=== PATIENT | female | born 1970 | race Caucasian/White ===

== ENCOUNTER 2024-10-18 14:51 | Inpatient (IN) | payer OTHER ==
[2024-10-18 16:17] LABS: HEMATOCRIT 42.5 % (32.4-45.2); HEMOGLOBIN 14.1 G/dL (10.7-15.3); MCH 29.7 pg (25.7-33.7); MCHC 33.1 g/dl (32.0-36.0); MEAN CELL VOLUME 89.6 fl (80-96); MEAN PLT VOLUME 7.1 fl (7.5-11.1); PLATELET COUNT 622.5 10^3/uL (134-434); RBC 4.74 10^6/uL (3.60-5.2); RDW 14.5 % (11.6-15.6)
[2024-10-18 16:28] LABS: EPITHELIAL CELLS 0-5 /hpf
[2024-10-18 16:41] LABS: BILIRUBIN,TOTAL 0.6 mg/dl (0.2-1); CALCIUM 9.5 mg/dl (8.5-10.1); CREATININE 0.8 mg/dl (0.6-1.3); MAGNESIUM 1.9 mg/dL (1.8-2.4); POTASSIUM 4.2 mmol/L (3.5-5.1); TOT PROT 7.1 g/dl (6.4-8.2)
[2024-10-18] MEDS ORDERED: ACETAMINOPHEN INJECTION 100 ML ONE (16:54)
[2024-10-18] MEDS: ACETAMINOPHEN 1000 MG/100 ML BAG IVPB ONE (16:58)
[2024-10-18] MEDS ORDERED: morphine SULFATE 4 MG/ML VIAL ONE ×3 (17:22→20:57)
[2024-10-18] MEDS: SODIUM CHLORIDE 0.9% 500 ML INFUS.BAG IV ONE (17:26)
[2024-10-18] MEDS: morphine CARPU-JECT 4 MG/1 ML DISP.SYRIN IVPUSH ONE ×3 (17:26→21:00)
[2024-10-18] MEDS ORDERED: PIPERACILLIN/TAZOBACTAM 4.5 GM VIAL IVPB ONE (18:36)
[2024-10-18] MEDS: PIPERACILLIN/TAZOB 4.5 GM 4.5 GM in DEXTROSE 5%-WATER 100 ML IVPB ONE (18:45)
[2024-10-19] MEDS: ACETAMINOPHEN 1000 MG/100 ML BAG IVPB ONE (00:06)
[2024-10-19 01:05] LABS: HIV INTERPRETATION NEGATIVE (NEGATIVE)
[2024-10-19] MEDS: SODIUM CHLORIDE 1,000 ML IV SCH (01:52)
[2024-10-19] MEDS: PIPERACILLIN/TAZOB 3.375 GM 50 ML IVPB SCH (01:53)
[2024-10-19 02:29] VITALS: BMI 35.6
[2024-10-19] MEDS ORDERED: ACETAMINOPHEN 325 MG TABLET (FP) PO PRN (05:19)
[2024-10-19 10:03] LABS: BASO % 0.1 % (0-2.0); EOS % 0.1 % (0-4.5); HEMATOCRIT 34.6 % (32.4-45.2); HEMOGLOBIN 11.3 GM/dL (10.7-15.3); LYMPH % 7.6 % (8-40); MCH 28.8 pg (25.7-33.7); MCHC 32.7 g/dl (32.0-36.0); MEAN CELL VOLUME 88.1 fl (80-96); MEAN PLT VOLUME 7.1 fl (7.5-11.1); MONO % 3.1 % (3.8-10.2); NEUT % 89.1 % (42.8-82.8); PLATELET COUNT 559 10^3/uL (134-434); RBC 3.93 M/mm3 (3.60-5.2); RDW 14.2 % (11.6-15.6); WHITE BLOOD COUNT 16.8 K/mm3 (4.0-10.0)
[2024-10-19 11:35] LABS: POTASSIUM 4.3 mmol/L (3.5-5.1)
[2024-10-19] MEDS: HYDROmorphone HCL CARPU-JECT 2 MG/1 ML DISP.SYRIN IVPB PRN ×2 (11:41→22:49)
[2024-10-19 11:44] LABS: ALBUMIN 2.7 g/dl (3.4-5.0); BLOOD UREA NITROGEN 8.5 mg/dL (7-18); CALCIUM 9.2 mg/dL (8.5-10.1)
[2024-10-19 11:48] LABS: BILIRUBIN,TOTAL 0.9 mg/dL (0.2-1); CREATININE 0.6 mg/dL (0.55-1.3); TOT PROT 6.2 g/dl (6.4-8.2)
[2024-10-19] MEDS: ACETAMINOPHEN 1000 MG/100 ML BAG IVPB PRN (12:44)
[2024-10-19] MEDS ORDERED: HYDROmorphone HCL CARPU-JECT 2 MG/1 ML DISP.SYRIN IVPB PRN (13:20)
[2024-10-19] MEDS: PIPERACILLIN/TAZOB 3.375 GM 3.375 GM in DEXTROSE 5%-WATER - 50 ML IVPB SCH (14:55)
[2024-10-19] MEDS ORDERED: HYDROmorphone HCL CARPU-JECT 2 MG/1 ML DISP.SYRIN IVPUSH PRN (16:18)
[2024-10-19] MEDS: PANTOPRAZOLE SODIUM 40 MG in SODIUM CHLORIDE 100 ML IVPB SCH (16:38)
[2024-10-19] MEDS: HYDROmorphone HCl 2 MG/ML VIAL IVPB ONE (17:26)
[2024-10-19] MEDS: PANTOPRAZOLE SODIUM 40 MG VIAL IVPUSH SCH (17:30)
[2024-10-19] MEDS: HYDROmorphone HCL CARPU-JECT 2 MG/1 ML DISP.SYRIN IVPB ONE (17:31)
[2024-10-19] MEDS: HYDROmorphone HCL CARPU-JECT 2 MG/1 ML DISP.SYRIN IVPUSH ONE (17:34)
[2024-10-19] MEDS: DEXTROSE 5%-NORMAL SALINE 1,000 ML IV SCH (18:39)
[2024-10-19] MEDS: PIPERACILLIN/TAZOB 4.5 GM 4.5 GM/100 ML BAG IVPB SCH (22:59)
[2024-10-20] MEDS: ENOXAPARIN NA (PORCINE) 40 MG/0.4 ML DISP.SYRIN SQ SCH (09:38)
[2024-10-20 12:51] LABS: HEMATOCRIT 33.3 % (32.4-45.2); HEMOGLOBIN 10.8 GM/dL (10.7-15.3); MCH 28.5 pg (25.7-33.7); MCHC 32.5 g/dl (32.0-36.0); MEAN CELL VOLUME 87.5 fl (80-96); MEAN PLT VOLUME 7.1 fl (7.5-11.1); PLATELET COUNT 508 10^3/uL (134-434); RBC 3.81 M/mm3 (3.60-5.2); RDW 14.3 % (11.6-15.6); WHITE BLOOD COUNT 14.8 K/mm3 (4.0-10.0)
[2024-10-20 13:12] LABS: POTASSIUM 3.7 mmol/L (3.5-5.1)
[2024-10-20 13:16] LABS: CALCIUM 8.8 mg/dL (8.5-10.1)
[2024-10-20 13:17] LABS: ALBUMIN 2.4 g/dl (3.4-5.0); BLOOD UREA NITROGEN 8.4 mg/dL (7-18); MAGNESIUM 2.1 mg/dL (1.8-2.4)
[2024-10-20 13:21] LABS: BILIRUBIN,TOTAL 0.5 mg/dL (0.2-1); CREATININE 0.7 mg/dL (0.55-1.3)
[2024-10-20 13:44] LABS: ANISOCYTOSIS 0; HELMET CELLS 0; HOWELL-JOLLY BODIES 0; MACROCYTOSIS 0; OVALOCYTE 0; ROULEAU 0; SICKELED CELLS 0; TARGET CELLS 0; TEAR DROP CELLS 0; TOXIC GRANULATION 0
[2024-10-20] MEDS: ACETAMINOPHEN 1000 MG/100 ML BAG IVPB PRN (16:11)
[2024-10-20] MEDS: MELATONIN 1 MG TABLET PO ONE (22:07)
[2024-10-21 08:49] LABS: BASO % 0.3 % (0-2.0); EOS % 0.1 % (0-4.5); HEMATOCRIT 32.4 % (32.4-45.2); HEMOGLOBIN 10.3 GM/dL (10.7-15.3); LYMPH % 9.7 % (8-40); MCH 28.2 pg (25.7-33.7); MCHC 31.7 g/dl (32.0-36.0); MEAN PLT VOLUME 7.4 fl (7.5-11.1); MONO % 4.2 % (3.8-10.2); NEUT % 85.7 % (42.8-82.8); PLATELET COUNT 473 10^3/uL (134-434); RBC 3.64 M/mm3 (3.60-5.2); RDW 14.1 % (11.6-15.6); WHITE BLOOD COUNT 12.7 K/mm3 (4.0-10.0)
[2024-10-21 09:15] LABS: POTASSIUM 3.8 mmol/L (3.5-5.1)
[2024-10-21 09:23] LABS: ALBUMIN 2.2 g/dl (3.4-5.0); BLOOD UREA NITROGEN 9.8 mg/dL (7-18); CALCIUM 8.4 mg/dL (8.5-10.1); MAGNESIUM 2.1 mg/dL (1.8-2.4)
[2024-10-21 09:27] LABS: CREATININE 0.6 mg/dL (0.55-1.3)
[2024-10-21 09:28] LABS: BILIRUBIN,TOTAL 0.5 mg/dL (0.2-1); TOT PROT 5.5 g/dl (6.4-8.2)
[2024-10-21] MEDS: ACETAMINOPHEN 325 MG TABLET (FP) PO PRN (23:00)
[2024-10-22 09:45] LABS: BASO % 0.8 % (0-2.0); EOS % 0.8 % (0-4.5); HEMOGLOBIN 10.4 GM/dL (10.7-15.3); LYMPH % 15.7 % (8-40); MCH 28.4 pg (25.7-33.7); MCHC 32.6 g/dl (32.0-36.0); MEAN CELL VOLUME 87.1 fl (80-96); MEAN PLT VOLUME 7.4 fl (7.5-11.1); MONO % 8.3 % (3.8-10.2); NEUT % 74.4 % (42.8-82.8); PLATELET COUNT 521 10^3/uL (134-434); RBC 3.67 M/mm3 (3.60-5.2); RDW 14.7 % (11.6-15.6); WHITE BLOOD COUNT 10.2 K/mm3 (4.0-10.0)
[2024-10-22 09:47] LABS: INR 1.25 (0.83-1.09); PROTHROMBIN TIME (PATIENT) 14.3 SEC (9.7-13.0)
[2024-10-22 10:00] LABS: POTASSIUM 3.8 mmol/L (3.5-5.1)
[2024-10-22 10:02] LABS: CALCIUM 8.2 mg/dL (8.5-10.1)
[2024-10-22 10:03] LABS: BLOOD UREA NITROGEN 7.2 mg/dL (7-18); MAGNESIUM 2.2 mg/dL (1.8-2.4)
[2024-10-22 10:05] LABS: CREATININE 0.5 mg/dL (0.55-1.3)
[2024-10-22 10:06] LABS: ALBUMIN 2.2 g/dl (3.4-5.0)
[2024-10-22 10:07] LABS: BILIRUBIN,TOTAL 0.5 mg/dL (0.2-1); TOT PROT 5.8 g/dl (6.4-8.2)
[2024-10-22 11:19] LABS: EPI CELLS >36 /uL (0-25.1); HYALINE CASTS 2 /uL (0-3.1); URINE APPEARANCE CLEAR; URINE BACTERIA 10 /uL (0-1359); URINE BILIRUBIN NEGATIVE (NEGATIVE); URINE COLOR DK YELLOW; URINE GLUCOSE (UA) NEGATIVE (NEGATIVE); URINE KETONE TRACE (NEGATIVE); URINE LEUK ESTERASE NEGATIVE (NEGATIVE); URINE NITRITE NEGATIVE (NEGATIVE); URINE PROTEIN 1+ (NEGATIVE); URINE RBC 39 /uL (0-23.9); URINE WBC 19 /uL (0-25.8)
[2024-10-23 09:28] LABS: HEMATOCRIT 29.4 % (32.4-45.2); MCH 29.3 pg (25.7-33.7); MEAN CELL VOLUME 86.3 fl (80-96); MEAN PLT VOLUME 7.2 fl (7.5-11.1); PLATELET COUNT 503 10^3/uL (134-434); RBC 3.41 M/mm3 (3.60-5.2); RDW 14.4 % (11.6-15.6); WHITE BLOOD COUNT 10.5 K/mm3 (4.0-10.0)
[2024-10-23 09:48] LABS: POTASSIUM 3.6 mmol/L (3.5-5.1)
[2024-10-23 09:55] LABS: ANISOCYTOSIS 0; MACROCYTOSIS 0
[2024-10-23 10:08] LABS: CALCIUM 8.4 mg/dL (8.5-10.1)
[2024-10-23 10:10] LABS: ALBUMIN 2.1 g/dl (3.4-5.0); BLOOD UREA NITROGEN 4.1 mg/dL (7-18); MAGNESIUM 2.2 mg/dL (1.8-2.4)
[2024-10-23 10:11] LABS: CREATININE 0.5 mg/dL (0.55-1.3)
[2024-10-23 10:13] LABS: BILIRUBIN,TOTAL 0.6 mg/dL (0.2-1)
[2024-10-23 10:15] LABS: TOT PROT 5.4 g/dl (6.4-8.2)
[2024-10-23] MEDS ORDERED: FENTANYL CITRATE/PF 50 MCG/ML VIAL ONE (14:10)
[2024-10-23] MEDS ORDERED: MIDAZOLAM HCL 2 MG/2 ML SINGLE DOSE VIAL ONE (14:10)
[2024-10-23] MEDS: FENTANYL CITRATE/PF 50 MCG/ML VIAL IVPUSH ONE (14:30)
[2024-10-23] MEDS: ONDANSETRON 4 MG/2 ML VIAL IVPB PRN (18:25)
[2024-10-23] MEDS: MELATONIN 5 MG TABLETS PO PRN (22:05)
[2024-10-24 09:39] LABS: INR 1.2 (0.83-1.09); PROTHROMBIN TIME (PATIENT) 13.7 SEC (9.7-13.0)
[2024-10-24 09:48] LABS: HEMATOCRIT 31.1 % (32.4-45.2); HEMOGLOBIN 10.2 GM/dL (10.7-15.3); MCH 28.7 pg (25.7-33.7); MCHC 32.9 g/dl (32.0-36.0); MEAN CELL VOLUME 87.2 fl (80-96); MEAN PLT VOLUME 7.3 fl (7.5-11.1); PLATELET COUNT 590 10^3/uL (134-434); RBC 3.57 M/mm3 (3.60-5.2); RDW 14.6 % (11.6-15.6); WHITE BLOOD COUNT 11.6 K/mm3 (4.0-10.0)
[2024-10-24 10:03] LABS: POTASSIUM 3.7 mmol/L (3.5-5.1)
[2024-10-24 10:12] LABS: CREATININE 0.6 mg/dL (0.55-1.3)
[2024-10-24 10:13] LABS: CALCIUM 8.7 mg/dL (8.5-10.1)
[2024-10-24 10:14] LABS: ALBUMIN 2.2 g/dl (3.4-5.0); MAGNESIUM 2.2 mg/dL (1.8-2.4)
[2024-10-24 10:16] LABS: BILIRUBIN,TOTAL 0.6 mg/dL (0.2-1)
[2024-10-24 11:18] LABS: ANISOCYTOSIS 0; HELMET CELLS 0; HOWELL-JOLLY BODIES 0; MACROCYTOSIS 0; OVALOCYTE 0; ROULEAU 0; SICKELED CELLS 0; TARGET CELLS 0; TEAR DROP CELLS 0; TOXIC GRANULATION 0
[2024-10-25 08:27] LABS: INR 1.18 (0.83-1.09); PROTHROMBIN TIME (PATIENT) 13.3 SEC (9.7-13.0)
[2024-10-25 08:41] LABS: CHLORIDE 106 mmol/L (98-107); POTASSIUM 3.4 mmol/L (3.5-5.1); SODIUM 141 mmol/L (136-145)
[2024-10-25 08:43] LABS: HEMATOCRIT 30.2 % (32.4-45.2); HEMOGLOBIN 9.8 GM/dL (10.7-15.3); MCH 28.4 pg (25.7-33.7); MCHC 32.6 g/dl (32.0-36.0); MEAN CELL VOLUME 87.1 fl (80-96); MEAN PLT VOLUME 7.3 fl (7.5-11.1); PLATELET COUNT 620 10^3/uL (134-434); RBC 3.47 M/mm3 (3.60-5.2); RDW 14.7 % (11.6-15.6); WHITE BLOOD COUNT 16.1 K/mm3 (4.0-10.0)
[2024-10-25 08:52] LABS: ALBUMIN 2.2 g/dl (3.4-5.0); CALCIUM 8.7 mg/dL (8.5-10.1)
[2024-10-25 08:53] LABS: ANION GAP 8 mmol/L (4-13); CO2 26 mmol/L (21-32); GLUCOSE,RANDOM 96 mg/dL (74-106); MAGNESIUM 2.2 mg/dL (1.8-2.4)
[2024-10-25 08:55] LABS: CREATININE 0.5 mg/dL (0.55-1.3); SGOT/AST 27 U/L (15-37); SGPT/ALT 35 U/L (13-61)
[2024-10-25 08:56] LABS: BILIRUBIN,TOTAL 0.5 mg/dL (0.2-1); TOT PROT 5.8 g/dl (6.4-8.2)
[2024-10-25 08:57] LABS: BLOOD UREA NITROGEN 2.9 mg/dL (7-18)
[2024-10-25 08:59] LABS: ALK PHOS 79 U/L (45-117)
[2024-10-25] MEDS: metroNIDAZOLE 250 MG TABLET PO SCH (10:39)
[2024-10-25] MEDS: POTASSIUM CHLORIDE TABS 20 MEQ TABLET.ER (FP) PO SCH (10:40)
[2024-10-25 10:56] LABS: ANISOCYTOSIS 1+; MACROCYTOSIS 0
[2024-10-25] MEDS: PANTOPRAZOLE 40 MG TABLET PO ONE (16:58)
[2024-10-25 23:28] VITALS: RESP 20; TEMP 98.1
[2024-10-26 06:55] VITALS: BP 133/78; PULSE 66
[2024-10-26 10:26] LABS: HEMATOCRIT 32.4 % (32.4-45.2); HEMOGLOBIN 10.7 GM/dL (10.7-15.3); MCH 28.6 pg (25.7-33.7); MEAN CELL VOLUME 86.5 fl (80-96); MEAN PLT VOLUME 7.3 fl (7.5-11.1); PLATELET COUNT 719 10^3/uL (134-434); RBC 3.74 M/mm3 (3.60-5.2); RDW 15.1 % (11.6-15.6); WHITE BLOOD COUNT 13.8 K/mm3 (4.0-10.0)
[2024-10-26 10:29] LABS: INR 1.2 (0.83-1.09); PROTHROMBIN TIME (PATIENT) 13.7 SEC (9.7-13.0)
[2024-10-26] MEDS: PANTOPRAZOLE 40 MG TABLET PO SCH (10:49)
[2024-10-26 11:00] LABS: ANISOCYTOSIS 0; MACROCYTOSIS 0
[2024-10-26 11:17] LABS: POTASSIUM 4.5 mmol/L (3.5-5.1)
[2024-10-26 11:19] LABS: ALBUMIN 2.5 g/dl (3.4-5.0); BLOOD UREA NITROGEN 3.8 mg/dL (7-18); CALCIUM 8.9 mg/dL (8.5-10.1)
[2024-10-26 11:22] LABS: CREATININE 0.5 mg/dL (0.55-1.3)
[2024-10-26 11:23] LABS: MAGNESIUM 2.1 mg/dL (1.8-2.4)
[2024-10-26 11:24] LABS: BILIRUBIN,TOTAL 0.5 mg/dL (0.2-1); TOT PROT 6.6 g/dl (6.4-8.2)
== END 2024-10-26 12:36 | disposition home or self-care (01) | DRG 244 ==
LOC: FER 14:51 → J8W 23:00
PROVIDERS: ADMIT Surgery; ATTEND Nurse Practitioner Acute Care
PROC: 0W9J3ZZ Drainage of Pelvic Cavity, Percutaneous Approach (ICD-10-PCS; principal; 2024-10-23)
PROC: BW2GZZZ Computerized Tomography (CT Scan) of Pelvic Region (ICD-10-PCS; 2024-10-23)
DX: K57.20 Diverticulitis of large intestine with perforation and abscess without bleeding (principal); E66.01 Morbid (severe) obesity due to excess calories; B96.20 Unspecified Escherichia coli [E. coli] as the cause of diseases classified elsewhere; D72.829 Elevated white blood cell count, unspecified; F12.90 Cannabis use, unspecified, uncomplicated; F17.210 Nicotine dependence, cigarettes, uncomplicated; Z68.35 Body mass index [BMI] 35.0-35.9, adult; R19.7 Diarrhea, unspecified
CPT/HCPCS: 0241U-QW; 36415; 49406; 71045-TC-FY; 74177-TC; 80053; 81003; 81015; 83036; 83605; 83690; 83735; 84484; 85025; 85027; 85610; 85730; 86140; 86803; 86850; 86900; 86901; 87040; 87070; 87075; 87077; 87086; 87102; 87116; 87186; 87205; 87206; 87210; 87389; 93005; 99285-25; J0131; Q9967

== ENCOUNTER 2024-11-16 10:10 | Inpatient (IN) | payer OTHER ==
[2024-11-16] MEDS: PIPERACILLIN/TAZOB 4.5 GM 4.5 GM in DEXTROSE 5%-WATER 100 ML IVPB ONE (11:00)
[2024-11-16] MEDS ORDERED: PIPERACILLIN/TAZOB 4.5 GM 4.5 GM/100 ML BAG IVPB ONE (11:15)
[2024-11-16 11:22] LABS: HEMATOCRIT 31.7 % (32.4-45.2); HEMOGLOBIN 10.3 GM/dL (10.7-15.3); MCH 27.6 pg (25.7-33.7); MCHC 32.4 g/dl (32.0-36.0); MEAN CELL VOLUME 85.1 fl (80-96); RBC 3.72 M/mm3 (3.60-5.2); RDW 15.7 % (11.6-15.6); WHITE BLOOD COUNT 21.6 K/mm3 (4.0-10.0)
[2024-11-16 11:32] LABS: INR 1.45 (0.83-1.09); PROTHROMBIN TIME (PATIENT) 16.2 SEC (9.7-13.0)
[2024-11-16 11:34] LABS: ACTIVATED PTT 35.6 SECONDS (25.2-36.5)
[2024-11-16] MEDS: SODIUM CHLORIDE 1,000 ML IV STA (11:45)
[2024-11-16 11:54] LABS: POTASSIUM 3.6 mmol/L (3.5-5.1)
[2024-11-16 11:55] LABS: BLOOD UREA NITROGEN 8.6 mg/dL (7-18); CALCIUM 9.2 mg/dL (8.5-10.1)
[2024-11-16 11:56] LABS: ALBUMIN 2.3 g/dl (3.4-5.0)
[2024-11-16 11:59] LABS: CREATININE 0.5 mg/dL (0.55-1.3)
[2024-11-16 12:01] LABS: BILIRUBIN,TOTAL 0.4 mg/dL (0.2-1); TOT PROT 6.8 g/dl (6.4-8.2)
[2024-11-16 12:21] LABS: ANISOCYTOSIS 1+; MACROCYTOSIS 1+
[2024-11-16 12:23] LABS: MEAN PLT VOLUME 6.6 fl (7.5-11.1); PLATELET COUNT 868 10^3/uL (134-434)
[2024-11-16] MEDS ORDERED: ACETAMINOPHEN INJECTION 100 ML ONE (12:33)
[2024-11-16] MEDS: ACETAMINOPHEN 1000 MG/100 ML BAG IVPB ONE (12:46)
[2024-11-16] MEDS: LACTATED RINGERS SOLUTION 1,000 ML IV SCH (14:25)
[2024-11-16] MEDS ORDERED: PIPERACILLIN/TAZOB 3.375 GM 50 ML IVPB SCH (18:00)
[2024-11-16] MEDS: PIPERACILLIN/TAZOB 3.375 GM 50 ML IVPB SCH (18:33)
[2024-11-16] MEDS: ACETAMINOPHEN 1000 MG/100 ML BAG IVPB PRN (19:23)
[2024-11-16] MEDS: PIPERACILLIN/TAZOB 3.375 GM 3.375 GM in DEXTROSE 5%-WATER - 50 ML IVPB SCH (22:44)
[2024-11-17] MEDS: CASPOFUNGIN ACETATE 70 MG in SODIUM CHLORIDE 250 ML IVPB ONE (01:19)
[2024-11-17] MEDS: PIPERACILLIN/TAZOB 4.5 GM 4.5 GM/100 ML BAG IVPB SCH (02:51)
[2024-11-17 08:35] LABS: INR 1.4 (0.83-1.09); PROTHROMBIN TIME (PATIENT) 15.9 SEC (9.7-13.0)
[2024-11-17 08:42] LABS: HEMATOCRIT 28.2 % (32.4-45.2); HEMOGLOBIN 9.4 GM/dL (10.7-15.3); MCH 27.8 pg (25.7-33.7); MCHC 33.3 g/dl (32.0-36.0); MEAN CELL VOLUME 83.6 fl (80-96); MEAN PLT VOLUME 6.5 fl (7.5-11.1); PLATELET COUNT 761 10^3/uL (134-434); RBC 3.37 M/mm3 (3.60-5.2); RDW 15.9 % (11.6-15.6); WHITE BLOOD COUNT 18.1 K/mm3 (4.0-10.0)
[2024-11-17 08:48] LABS: POTASSIUM 3.6 mmol/L (3.5-5.1)
[2024-11-17 08:55] LABS: CALCIUM 8.8 mg/dL (8.5-10.1)
[2024-11-17 08:56] LABS: BLOOD UREA NITROGEN 6.1 mg/dL (7-18); MAGNESIUM 1.9 mg/dL (1.8-2.4)
[2024-11-17 08:59] LABS: CREATININE 0.4 mg/dL (0.55-1.3); PHOSPHOROUS 3.9 mg/dL (2.5-4.9)
[2024-11-17 09:00] LABS: BILIRUBIN,TOTAL 0.5 mg/dL (0.2-1); TOT PROT 5.8 g/dl (6.4-8.2)
[2024-11-17] MEDS: IOHEXOL (OMNIPAQUE IV) 350 MG/ML - 100 ML BOTTLE PO ONE (10:51)
[2024-11-17] MEDS: IOHEXOL (OMNIPAQUE PO) 12 MG/ML - 500 ML BOTTLE PO ONE ×2 (11:15→13:03)
[2024-11-17] MEDS: IOHEXOL 350 MG/ML IV ONE ×2 (12:04→12:16)
[2024-11-17] MEDS ORDERED: IOHEXOL (OMNIPAQUE IV) 350 MG/ML - 100 ML BOTTLE PO ONE ×2 (12:30→13:06)
[2024-11-17] MEDS ORDERED: FENTANYL CITRATE/PF 50 MCG/ML VIAL ONE (14:15)
[2024-11-17] MEDS: FENTANYL CITRATE/PF 50 MCG/ML VIAL IVPUSH ONE ×5 (14:42→15:18)
[2024-11-17 16:27] VITALS: BMI 31.9
[2024-11-17] MEDS: ENOXAPARIN NA (PORCINE) 40 MG/0.4 ML DISP.SYRIN SQ SCH (17:06)
[2024-11-17] MEDS: DEXTROSE 5%-NORMAL SALINE 1,000 ML IV SCH (17:26)
[2024-11-17] MEDS: CASPOFUNGIN ACETATE 50 MG in SODIUM CHLORIDE 250 ML IVPB SCH (21:35)
[2024-11-18 13:03] LABS: BASO % 0.2 % (0-2.0); EOS % 0.2 % (0-4.5); HEMATOCRIT 28.4 % (32.4-45.2); HEMOGLOBIN 9.3 GM/dL (10.7-15.3); LYMPH % 12.5 % (8-40); MCH 27.3 pg (25.7-33.7); MCHC 32.7 g/dl (32.0-36.0); MEAN CELL VOLUME 83.6 fl (80-96); MEAN PLT VOLUME 6.5 fl (7.5-11.1); MONO % 7.1 % (3.8-10.2); PLATELET COUNT 850 10^3/uL (134-434); RDW 15.8 % (11.6-15.6); WHITE BLOOD COUNT 13.5 K/mm3 (4.0-10.0)
[2024-11-18 13:30] LABS: POTASSIUM 3.4 mmol/L (3.5-5.1)
[2024-11-18 13:33] LABS: CALCIUM 8.5 mg/dL (8.5-10.1)
[2024-11-18 13:34] LABS: BLOOD UREA NITROGEN 3.8 mg/dL (7-18)
[2024-11-18 13:37] LABS: CREATININE 0.4 mg/dL (0.55-1.3)
[2024-11-18 13:38] LABS: BILIRUBIN,TOTAL 0.7 mg/dL (0.2-1); TOT PROT 5.8 g/dl (6.4-8.2)
[2024-11-18] MEDS: MULTIVITAMINS (DAILY MVI) TABLET (FP) PO SCH (16:14)
[2024-11-19 09:27] LABS: HEMATOCRIT 27.1 % (32.4-45.2); HEMOGLOBIN 8.6 GM/dL (10.7-15.3); MCH 27.4 pg (25.7-33.7); MEAN CELL VOLUME 85.6 fl (80-96); MEAN PLT VOLUME 6.6 fl (7.5-11.1); PLATELET COUNT 759 10^3/uL (134-434); RBC 3.16 M/mm3 (3.60-5.2); RDW 16.1 % (11.6-15.6); WHITE BLOOD COUNT 14.6 K/mm3 (4.0-10.0)
[2024-11-19 09:36] LABS: POTASSIUM 3.3 mmol/L (3.5-5.1)
[2024-11-19 09:39] LABS: ALBUMIN 1.9 g/dl (3.4-5.0); BLOOD UREA NITROGEN 3.5 mg/dL (7-18); CALCIUM 8.3 mg/dL (8.5-10.1)
[2024-11-19 09:40] LABS: MAGNESIUM 1.8 mg/dL (1.8-2.4)
[2024-11-19 09:42] LABS: CREATININE 0.3 mg/dL (0.55-1.3)
[2024-11-19 09:44] LABS: BILIRUBIN,TOTAL 0.7 mg/dL (0.2-1); TOT PROT 5.6 g/dl (6.4-8.2)
[2024-11-19 11:00] LABS: ANISOCYTOSIS 0; HELMET CELLS 0; HOWELL-JOLLY BODIES 0; MACROCYTOSIS 0; OVALOCYTE 0; ROULEAU 0; SICKELED CELLS 0; TARGET CELLS 0; TEAR DROP CELLS 0; TOXIC GRANULATION 0
[2024-11-20 08:41] LABS: HEMATOCRIT 25.8 % (32.4-45.2); HEMOGLOBIN 8.5 GM/dL (10.7-15.3); MCH 27.7 pg (25.7-33.7); MCHC 32.9 g/dl (32.0-36.0); MEAN CELL VOLUME 84.1 fl (80-96); MEAN PLT VOLUME 6.5 fl (7.5-11.1); PLATELET COUNT 766 10^3/uL (134-434); RBC 3.06 M/mm3 (3.60-5.2); RDW 16.2 % (11.6-15.6); WHITE BLOOD COUNT 13.9 K/mm3 (4.0-10.0)
[2024-11-20 09:10] LABS: CHLORIDE 106 mmol/L (98-107); SODIUM 140 mmol/L (136-145)
[2024-11-20 09:22] LABS: GLUCOSE,RANDOM 100 mg/dL (74-106)
[2024-11-20 09:23] LABS: ALBUMIN 1.8 g/dl (3.4-5.0); ANION GAP 8 mmol/L (4-13); CALCIUM 8.3 mg/dL (8.5-10.1); CO2 26 mmol/L (21-32); MAGNESIUM 1.9 mg/dL (1.8-2.4)
[2024-11-20 09:25] LABS: BLOOD UREA NITROGEN 1.8 mg/dL (7-18)
[2024-11-20 09:26] LABS: SGOT/AST 10 U/L (15-37); SGPT/ALT 9 U/L (13-61)
[2024-11-20 09:27] LABS: CREATININE 0.3 mg/dL (0.55-1.3)
[2024-11-20 09:29] LABS: ALK PHOS 101 U/L (45-117); BILIRUBIN,TOTAL 0.4 mg/dL (0.2-1)
[2024-11-20 09:30] LABS: TOT PROT 5.3 g/dl (6.4-8.2)
[2024-11-20 09:43] LABS: ANISOCYTOSIS 2+; MACROCYTOSIS 1+
[2024-11-20] MEDS: POTASSIUM CHLORIDE ORAL LIQUID 20 MEQ/15 ML PO ONE (11:00)
[2024-11-20] MEDS: KCL 10 MEQ IVPB 10 MEQ/100 ML INFUS.BAG IVPB SCH (11:01)
[2024-11-20 11:13] LABS: PHOSPHOROUS 3.2 mg/dL (2.5-4.9)
[2024-11-20] MEDS: MAGNESIUM OXIDE 400 MG TABLET (FP) PO ONE (12:25)
[2024-11-21] MEDS: MELATONIN 5 MG TABLETS PO PRN (02:26)
[2024-11-21 09:45] LABS: HEMATOCRIT 26.4 % (32.4-45.2); HEMOGLOBIN 8.4 GM/dL (10.7-15.3); MCH 26.8 pg (25.7-33.7); MCHC 31.7 g/dl (32.0-36.0); MEAN CELL VOLUME 84.5 fl (80-96); MEAN PLT VOLUME 6.6 fl (7.5-11.1); PLATELET COUNT 863 10^3/uL (134-434); RBC 3.13 M/mm3 (3.60-5.2); RDW 16.2 % (11.6-15.6); WHITE BLOOD COUNT 13.7 K/mm3 (4.0-10.0)
[2024-11-21 09:52] LABS: INR 1.26 (0.83-1.09); PROTHROMBIN TIME (PATIENT) 14.4 SEC (9.7-13.0)
[2024-11-21 10:10] LABS: CHLORIDE 104 mmol/L (98-107); POTASSIUM 3.3 mmol/L (3.5-5.1); SODIUM 139 mmol/L (136-145)
[2024-11-21 10:16] LABS: ALBUMIN 1.8 g/dl (3.4-5.0); ALK PHOS 90 U/L (45-117); CALCIUM 8.4 mg/dL (8.5-10.1); GLUCOSE,RANDOM 96 mg/dL (74-106)
[2024-11-21 10:17] LABS: ANION GAP 7 mmol/L (4-13); BLOOD UREA NITROGEN 2.6 mg/dL (7-18); CO2 27 mmol/L (21-32); MAGNESIUM 1.8 mg/dL (1.8-2.4)
[2024-11-21 10:19] LABS: CREATININE 0.3 mg/dL (0.55-1.3); SGOT/AST 9 U/L (15-37); SGPT/ALT 9 U/L (13-61)
[2024-11-21 10:20] LABS: BILIRUBIN,TOTAL 0.4 mg/dL (0.2-1)
[2024-11-21 10:21] LABS: TOT PROT 5.4 g/dl (6.4-8.2)
[2024-11-21 10:59] LABS: ANISOCYTOSIS 0; HELMET CELLS 0; HOWELL-JOLLY BODIES 0; MACROCYTOSIS 0; OVALOCYTE 0; ROULEAU 0; SICKELED CELLS 0; TARGET CELLS 0; TEAR DROP CELLS 0; TOXIC GRANULATION 0
[2024-11-21] MEDS: POTASSIUM CHLORIDE TABS 20 MEQ TABLET.ER (FP) PO SCH (13:03)
[2024-11-21] MEDS: MAGNESIUM OXIDE 400 MG TABLET (FP) PO ONE (13:04)
[2024-11-21] MEDS ORDERED: FENTANYL CITRATE/PF 50 MCG/ML VIAL ONE ×4 (14:29→16:34)
[2024-11-21] MEDS ORDERED: MIDAZOLAM HCL 2 MG/2 ML SINGLE DOSE VIAL ONE ×2 (14:29→15:07)
[2024-11-21] MEDS: FENTANYL CITRATE/PF 50 MCG/ML VIAL IVPUSH SCH (14:39)
[2024-11-21] MEDS: MIDAZOLAM HCL 2 MG/2 ML SINGLE DOSE VIAL IVPUSH SCH (14:40)
[2024-11-22] MEDS ORDERED: HYDROmorphone HCl 2 MG/ML VIAL IVPB PRN (10:10)
[2024-11-22] MEDS: HYDROmorphone HCL CARPU-JECT 2 MG/1 ML DISP.SYRIN IVPB PRN (10:59)
[2024-11-22] MEDS: ACETAMINOPHEN 1000 MG/100 ML BAG IVPB SCH (11:03)
[2024-11-22 11:43] LABS: BASO % 0.4 % (0-2.0); EOS % 0.3 % (0-4.5); HEMATOCRIT 28.4 % (32.4-45.2); HEMOGLOBIN 8.9 GM/dL (10.7-15.3); LYMPH % 11.8 % (8-40); MCH 26.5 pg (25.7-33.7); MCHC 31.3 g/dl (32.0-36.0); MEAN CELL VOLUME 84.6 fl (80-96); MEAN PLT VOLUME 6.4 fl (7.5-11.1); MONO % 8.6 % (3.8-10.2); NEUT % 78.9 % (42.8-82.8); PLATELET COUNT 888 10^3/uL (134-434); RBC 3.35 M/mm3 (3.60-5.2); RDW 16.4 % (11.6-15.6); WHITE BLOOD COUNT 16.6 K/mm3 (4.0-10.0)
[2024-11-22 11:57] LABS: POTASSIUM 3.8 mmol/L (3.5-5.1)
[2024-11-22 12:05] LABS: CALCIUM 8.6 mg/dL (8.5-10.1)
[2024-11-22 12:07] LABS: MAGNESIUM 1.8 mg/dL (1.8-2.4)
[2024-11-22 12:09] LABS: BILIRUBIN,TOTAL 0.8 mg/dL (0.2-1); CREATININE 0.4 mg/dL (0.55-1.3); TOT PROT 5.8 g/dl (6.4-8.2)
[2024-11-23] MEDS ORDERED: HYDROmorphone HCL CARPU-JECT 2 MG/1 ML DISP.SYRIN IVPB PRN (09:13)
[2024-11-23 09:45] LABS: BASO % 0.4 % (0-2.0); EOS % 0.9 % (0-4.5); HEMATOCRIT 26.8 % (32.4-45.2); HEMOGLOBIN 8.7 GM/dL (10.7-15.3); LYMPH % 12.3 % (8-40); MCH 27.4 pg (25.7-33.7); MCHC 32.6 g/dl (32.0-36.0); MEAN PLT VOLUME 6.4 fl (7.5-11.1); MONO % 7.9 % (3.8-10.2); NEUT % 78.5 % (42.8-82.8); PLATELET COUNT 850 10^3/uL (134-434); RBC 3.18 M/mm3 (3.60-5.2); RDW 16.2 % (11.6-15.6); WHITE BLOOD COUNT 13.1 K/mm3 (4.0-10.0)
[2024-11-23] MEDS: HYDROmorphone HCL CARPU-JECT 2 MG/1 ML DISP.SYRIN IVPUSH PRN (09:45)
[2024-11-23 10:03] LABS: POTASSIUM 3.8 mmol/L (3.5-5.1)
[2024-11-23 10:08] LABS: CALCIUM 8.6 mg/dL (8.5-10.1)
[2024-11-23 10:12] LABS: CREATININE 0.4 mg/dL (0.55-1.3)
[2024-11-23 10:16] LABS: BILIRUBIN,TOTAL 0.4 mg/dL (0.2-1)
[2024-11-23 12:39] LABS: TOT PROT 5.8 g/dl (6.4-8.2)
[2024-11-23] MEDS: ACETAMINOPHEN 1000 MG/100 ML BAG IVPB SCH ×2 (18:18→21:17)
[2024-11-23] MEDS: LIDOCAINE 5% TOPICAL PATCH TP SCH (18:18)
[2024-11-23] MEDS: LIDOCAINE PATCH REMOVAL MC SCH (21:16)
[2024-11-24 09:44] LABS: HEMATOCRIT 28.2 % (32.4-45.2); MCH 27.1 pg (25.7-33.7); MCHC 31.9 g/dl (32.0-36.0); MEAN CELL VOLUME 84.7 fl (80-96); MEAN PLT VOLUME 6.5 fl (7.5-11.1); PLATELET COUNT 977 10^3/uL (134-434); RBC 3.32 M/mm3 (3.60-5.2); RDW 16.4 % (11.6-15.6); WHITE BLOOD COUNT 13.8 K/mm3 (4.0-10.0)
[2024-11-24 10:03] LABS: POTASSIUM 3.9 mmol/L (3.5-5.1)
[2024-11-24 10:09] LABS: BLOOD UREA NITROGEN 8.1 mg/dL (7-18); CALCIUM 8.3 mg/dL (8.5-10.1)
[2024-11-24 10:10] LABS: MAGNESIUM 1.8 mg/dL (1.8-2.4)
[2024-11-24 10:12] LABS: CREATININE 0.6 mg/dL (0.55-1.3)
[2024-11-24 10:13] LABS: BILIRUBIN,TOTAL 0.8 mg/dL (0.2-1)
[2024-11-24 10:14] LABS: TOT PROT 5.9 g/dl (6.4-8.2)
[2024-11-24 10:20] LABS: ANISOCYTOSIS 0; MACROCYTOSIS 0
[2024-11-24] MEDS ORDERED: MIDAZOLAM HCL 2 MG/2 ML SINGLE DOSE VIAL ONE (12:19)
[2024-11-24] MEDS ORDERED: HYDROmorphone HCL CARPU-JECT 2 MG/1 ML DISP.SYRIN ONE (12:32)
[2024-11-24] MEDS: ACETAMINOPHEN 1000 MG/100 ML BAG IVPB SCH (16:40)
[2024-11-24] MEDS: SODIUM CHLORIDE 1,000 ML IV SCH (16:40)
[2024-11-25 09:47] LABS: BASO % 0.3 % (0-2.0); EOS % 0.4 % (0-4.5); HEMATOCRIT 25.2 % (32.4-45.2); HEMOGLOBIN 8.3 GM/dL (10.7-15.3); MCH 27.7 pg (25.7-33.7); MCHC 33.1 g/dl (32.0-36.0); MEAN CELL VOLUME 83.9 fl (80-96); MEAN PLT VOLUME 6.4 fl (7.5-11.1); MONO % 10.2 % (3.8-10.2); NEUT % 77.1 % (42.8-82.8); PLATELET COUNT 806 10^3/uL (134-434); RDW 16.7 % (11.6-15.6)
[2024-11-25 10:36] LABS: POTASSIUM 3.4 mmol/L (3.5-5.1)
[2024-11-25 10:38] LABS: ALBUMIN 1.9 g/dl (3.4-5.0); CALCIUM 8.3 mg/dL (8.5-10.1)
[2024-11-25 10:39] LABS: MAGNESIUM 1.9 mg/dL (1.8-2.4)
[2024-11-25 10:41] LABS: CREATININE 0.4 mg/dL (0.55-1.3)
[2024-11-25 10:43] LABS: BILIRUBIN,TOTAL 0.3 mg/dL (0.2-1); TOT PROT 5.5 g/dl (6.4-8.2)
[2024-11-25] MEDS: HYDROmorphone HCL CARPU-JECT 2 MG/1 ML DISP.SYRIN IVPUSH PRN (15:30)
[2024-11-25] MEDS: ACETAMINOPHEN 1000 MG/100 ML BAG IVPB ONE (20:37)
[2024-11-26] MEDS: CASPOFUNGIN ACETATE 50 MG in SODIUM CHLORIDE 250 ML IVPB SCH (00:45)
[2024-11-26] MEDS ORDERED: ACETAMINOPHEN 325 MG TABLET (FP) PO PRN (10:18)
[2024-11-26 12:11] LABS: BASO % 0.6 % (0-2.0); EOS % 0.9 % (0-4.5); HEMATOCRIT 25.8 % (32.4-45.2); HEMOGLOBIN 8.4 GM/dL (10.7-15.3); LYMPH % 17.2 % (8-40); MCH 27.2 pg (25.7-33.7); MCHC 32.5 g/dl (32.0-36.0); MEAN CELL VOLUME 83.8 fl (80-96); MEAN PLT VOLUME 6.2 fl (7.5-11.1); MONO % 9.1 % (3.8-10.2); NEUT % 72.2 % (42.8-82.8); PLATELET COUNT 838 10^3/uL (134-434); RBC 3.08 M/mm3 (3.60-5.2); RDW 17.2 % (11.6-15.6); WHITE BLOOD COUNT 8.9 K/mm3 (4.0-10.0)
[2024-11-26 12:42] LABS: POTASSIUM 3.7 mmol/L (3.5-5.1)
[2024-11-26 12:43] LABS: CALCIUM 8.4 mg/dL (8.5-10.1)
[2024-11-26 12:45] LABS: BLOOD UREA NITROGEN 5.7 mg/dL (7-18)
[2024-11-26 12:47] LABS: CREATININE 0.4 mg/dL (0.55-1.3)
[2024-11-26 12:49] LABS: BILIRUBIN,TOTAL 0.4 mg/dL (0.2-1)
[2024-11-26] MEDS: morphine SULFATE IMMEDIATE RELEASE 30 MG TAB PO PRN (13:20)
[2024-11-26] MEDS: ACETAMINOPHEN 1000 MG/100 ML BAG IVPB PRN (16:42)
[2024-11-27 09:46] LABS: BASO % 0.3 % (0-2.0); HEMOGLOBIN 8.1 GM/dL (10.7-15.3); LYMPH % 15.1 % (8-40); MCH 27.4 pg (25.7-33.7); MCHC 32.4 g/dl (32.0-36.0); MEAN CELL VOLUME 84.5 fl (80-96); MEAN PLT VOLUME 6.5 fl (7.5-11.1); MONO % 10.9 % (3.8-10.2); NEUT % 72.7 % (42.8-82.8); PLATELET COUNT 763 10^3/uL (134-434); RBC 2.96 M/mm3 (3.60-5.2); RDW 16.9 % (11.6-15.6); WHITE BLOOD COUNT 7.5 K/mm3 (4.0-10.0)
[2024-11-27 10:06] LABS: POTASSIUM 3.8 mmol/L (3.5-5.1)
[2024-11-27 11:10] LABS: CALCIUM 8.6 mg/dL (8.5-10.1)
[2024-11-27 11:11] LABS: ALBUMIN 1.9 g/dl (3.4-5.0); BLOOD UREA NITROGEN 4.4 mg/dL (7-18)
[2024-11-27 11:14] LABS: CREATININE 0.4 mg/dL (0.55-1.3)
[2024-11-27 11:27] LABS: BILIRUBIN,TOTAL 0.4 mg/dL (0.2-1)
[2024-11-27] MEDS ORDERED: BUPIVACAINE HCL/PF 0.25% (2.5MG/ML) 10 ML VIAL ONE (15:11)
[2024-11-27] MEDS ORDERED: ONDANSETRON 4 MG/2 ML VIAL ONE (15:18)
[2024-11-27] MEDS ORDERED: PROPOFOL 20 ML ONE (15:18)
[2024-11-27] MEDS ORDERED: ROCURONIUM BROMIDE 50 MG/5 ML SYRINGE ONE (15:18)
[2024-11-27] MEDS ORDERED: DEXAMETHASONE SOD PHOSPHATE 4 MG/1 ML VIAL ONE (15:18)
[2024-11-27] MEDS ORDERED: MIDAZOLAM HCL 2 MG/2 ML SINGLE DOSE VIAL ONE (15:18)
[2024-11-27] MEDS ORDERED: LIDOCAINE HCL/PF 2% SDV 5ML VIAL ONE (15:18)
[2024-11-27] MEDS: cefOXitin SODIUM 1 GM VIAL (RESTRICTED TO ID) IVPB ONE (15:48)
[2024-11-27] MEDS ORDERED: ONDANSETRON 4 MG/2 ML VIAL IVPUSH PRN ×2 (16:22→17:05)
[2024-11-27] MEDS ORDERED: SUGAMMADEX SODIUM 200 MG/2 ML VIAL ONE (16:24)
[2024-11-27] MEDS: PIPERACILLIN/TAZOB 4.5 GM 4.5 GM/100 ML BAG IVPB SCH (17:32)
[2024-11-27] MEDS: SODIUM CHLORIDE 1,000 ML IV SCH (17:54)
[2024-11-27] MEDS: morphine SULFATE IMMEDIATE RELEASE 30 MG TAB PO PRN (19:57)
[2024-11-27] MEDS: oxyCODONE HCL 5 MG TABLET PO PRN (20:46)
[2024-11-27] MEDS: ACETAMINOPHEN 325 MG TABLET (FP) PO PRN (22:54)
[2024-11-27] MEDS: LIDOCAINE PATCH REMOVAL MC SCH (23:16)
[2024-11-28] MEDS: CASPOFUNGIN ACETATE 50 MG in SODIUM CHLORIDE 250 ML IVPB SCH (01:11)
[2024-11-28 08:38] LABS: BASO % 0.2 % (0-2.0); HEMATOCRIT 24.3 % (32.4-45.2); HEMOGLOBIN 7.9 GM/dL (10.7-15.3); LYMPH % 13.7 % (8-40); MCH 27.3 pg (25.7-33.7); MCHC 32.3 g/dl (32.0-36.0); MEAN CELL VOLUME 84.4 fl (80-96); MONO % 6.3 % (3.8-10.2); NEUT % 79.8 % (42.8-82.8); PLATELET COUNT 731 10^3/uL (134-434); RBC 2.89 M/mm3 (3.60-5.2); RDW 17.3 % (11.6-15.6); WHITE BLOOD COUNT 8.1 K/mm3 (4.0-10.0)
[2024-11-28 09:24] LABS: POTASSIUM 4.1 mmol/L (3.5-5.1)
[2024-11-28 09:29] LABS: ALBUMIN 1.9 g/dl (3.4-5.0); BLOOD UREA NITROGEN 4.2 mg/dL (7-18); CALCIUM 8.6 mg/dL (8.5-10.1)
[2024-11-28 09:34] LABS: BILIRUBIN,TOTAL 0.4 mg/dL (0.2-1); CREATININE 0.4 mg/dL (0.55-1.3); TOT PROT 5.6 g/dl (6.4-8.2)
[2024-11-28] MEDS: ENOXAPARIN NA (PORCINE) 40 MG/0.4 ML DISP.SYRIN SQ SCH (10:24)
[2024-11-28] MEDS: MULTIVITAMINS (DAILY MVI) TABLET (FP) PO SCH (10:24)
[2024-11-28] MEDS: PSYLLIUM 5.85 GM PACKET PO SCH (10:24)
[2024-11-28] MEDS: LIDOCAINE 5% TOPICAL PATCH TP SCH (10:25)
[2024-11-28] MEDS: oxyCODONE HCL 5 MG TABLET PO PRN (12:28)
[2024-11-28 15:18] VITALS: RESP 18
[2024-11-29 10:08] LABS: BASO % 0.6 % (0-2.0); EOS % 0.9 % (0-4.5); HEMATOCRIT 24.8 % (32.4-45.2); HEMOGLOBIN 7.9 GM/dL (10.7-15.3); LYMPH % 24.8 % (8-40); MCH 27.5 pg (25.7-33.7); MCHC 31.7 g/dl (32.0-36.0); MEAN CELL VOLUME 86.9 fl (80-96); MEAN PLT VOLUME 6.8 fl (7.5-11.1); MONO % 8.5 % (3.8-10.2); NEUT % 65.2 % (42.8-82.8); PLATELET COUNT 778 10^3/uL (134-434); RBC 2.86 M/mm3 (3.60-5.2); RDW 17.7 % (11.6-15.6); WHITE BLOOD COUNT 9.3 K/mm3 (4.0-10.0)
[2024-11-29 10:27] LABS: POTASSIUM 3.9 mmol/L (3.5-5.1)
[2024-11-29 10:31] LABS: POTASSIUM 3.8 mmol/L (3.5-5.1)
[2024-11-29 10:37] LABS: BLOOD UREA NITROGEN 8.9 mg/dL (7-18)
[2024-11-29 10:38] LABS: ALBUMIN 2.1 g/dl (3.4-5.0); CALCIUM 8.7 mg/dL (8.5-10.1)
[2024-11-29 10:42] LABS: CREATININE 0.6 mg/dL (0.55-1.3); PHOSPHOROUS 4.1 mg/dL (2.5-4.9)
[2024-11-29 10:43] LABS: BILIRUBIN,TOTAL 0.4 mg/dL (0.2-1); TOT PROT 5.8 g/dl (6.4-8.2)
[2024-11-29 10:54] LABS: ALBUMIN 2.1 g/dl (3.4-5.0); BILIRUBIN,TOTAL 0.3 mg/dL (0.2-1); BLOOD UREA NITROGEN 8.9 mg/dL (7-18); CALCIUM 8.6 mg/dL (8.5-10.1); TOT PROT 5.9 g/dl (6.4-8.2)
[2024-11-29 10:56] LABS: CREATININE 0.6 mg/dL (0.55-1.3)
[2024-11-29 12:35] LABS: BASO % 0.6 % (0-2.0); EOS % 0.9 % (0-4.5); LYMPH % 26.3 % (8-40); MCH 27.6 pg (25.7-33.7); MEAN CELL VOLUME 86.4 fl (80-96); MEAN PLT VOLUME 6.8 fl (7.5-11.1); MONO % 8.7 % (3.8-10.2); NEUT % 63.5 % (42.8-82.8); PLATELET COUNT 787 10^3/uL (134-434); RDW 17.2 % (11.6-15.6); WHITE BLOOD COUNT 9.7 K/mm3 (4.0-10.0)
[2024-11-29] MEDS: AMOX TR/POT CLAV 875MG/125MG TABLETS (FP) PO SCH (13:21)
[2024-11-29] MEDS: FLUCONAZOLE 100 MG TABLET (UD) PO SCH (13:21)
[2024-11-29] MEDS: MELATONIN 5 MG TABLETS PO PRN (22:07)
[2024-11-30 06:35] VITALS: TEMP 98.6
[2024-11-30 09:21] LABS: BASO % 0.6 % (0-2.0); HEMATOCRIT 25.4 % (32.4-45.2); HEMOGLOBIN 8.3 GM/dL (10.7-15.3); LYMPH % 17.1 % (8-40); MCH 27.9 pg (25.7-33.7); MCHC 32.8 g/dl (32.0-36.0); MEAN CELL VOLUME 85.1 fl (80-96); MEAN PLT VOLUME 6.8 fl (7.5-11.1); MONO % 8.5 % (3.8-10.2); NEUT % 72.8 % (42.8-82.8); PLATELET COUNT 798 10^3/uL (134-434); RBC 2.98 M/mm3 (3.60-5.2); RDW 17.3 % (11.6-15.6); WHITE BLOOD COUNT 9.7 K/mm3 (4.0-10.0)
[2024-11-30 09:55] LABS: CALCIUM 8.5 mg/dL (8.5-10.1)
[2024-11-30 09:56] LABS: BLOOD UREA NITROGEN 4.7 mg/dL (7-18)
[2024-11-30 09:59] LABS: CREATININE 0.4 mg/dL (0.55-1.3)
[2024-11-30 10:00] LABS: BILIRUBIN,TOTAL 0.7 mg/dL (0.2-1); TOT PROT 5.6 g/dl (6.4-8.2)
[2024-11-30 12:37] VITALS: BP 138/79; PULSE 85
== END 2024-11-30 11:24 | disposition home or self-care (01) | DRG 221 ==
LOC: JER 10:10 → JERBED 13:49 → J8W 17:24
PROVIDERS: ADMIT Student in an Organized Health Care Education/Training Program
PROC: 0H97XZZ Drainage of Abdomen Skin, External Approach (ICD-10-PCS; 2024-11-17)
PROC: BW20ZZZ Computerized Tomography (CT Scan) of Abdomen (ICD-10-PCS; 2024-11-17)
PROC: 0H97XZZ Drainage of Abdomen Skin, External Approach (ICD-10-PCS; 2024-11-21)
PROC: BW20ZZZ Computerized Tomography (CT Scan) of Abdomen (ICD-10-PCS; 2024-11-21)
PROC: 0D1L0Z4 Bypass Transverse Colon to Cutaneous, Open Approach (ICD-10-PCS; principal; 2024-11-27 15:00)
DX: K57.80 Diverticulitis of intestine, part unspecified, with perforation and abscess without bleeding (principal); K65.1 Peritoneal abscess; E66.09 Other obesity due to excess calories; K63.2 Fistula of intestine; B96.20 Unspecified Escherichia coli [E. coli] as the cause of diseases classified elsewhere; K57.32 Diverticulitis of large intestine without perforation or abscess without bleeding; K21.9 Gastro-esophageal reflux disease without esophagitis
CPT/HCPCS: 36415; 49407; 49423; 74177-TC; 76080-TC-FY; 80053; 83735; 84100; 84132; 85025; 85027; 85610; 85730; 86140; 86850; 86900; 86901; 87040; 87070; 87075; 87076; 87077; 87102; 87106; 87116; 87186; 87205; 87206; 87210; 93005; 93010; 93970-TC; 94760; 99285-25; J0131; J0637; Q9967

== ENCOUNTER 2025-02-07 06:10 | Day surgery (SDC) | payer OTHER ==
[2025-02-02 09:24] VITALS: BMI 34.3
[2025-02-07 06:35] VITALS: RESP 18
[2025-02-07] MEDS ORDERED: LIDOCAINE HCL 1%, 10 MG/ML (20ML VIAL) ONE (07:11)
[2025-02-07] MEDS ORDERED: MIDAZOLAM HCL 2 MG/2 ML SINGLE DOSE VIAL ONE (07:51)
[2025-02-07] MEDS ORDERED: PROPOFOL 20 ML ONE ×3 (07:51→08:21)
[2025-02-07] MEDS ORDERED: BUPIVACAINE HCL/PF 0.25% (2.5MG/ML) 10 ML VIAL ONE (07:58)
[2025-02-07] MEDS: LIDOCAINE HCL 1%, 10 MG/ML (20ML VIAL) NR ONE ×3 (08:18)
[2025-02-07] MEDS: BUPIVACAINE HCL/PF 0.25% (2.5MG/ML) 10 ML VIAL IJ ONE ×2 (08:18)
[2025-02-07] MEDS ORDERED: LACTATED RINGERS SOLUTION 1,000 ML IV SCH (09:00)
[2025-02-07] MEDS ORDERED: ACETAMINOPHEN 500 MG TABLET (FP) ONE (11:11)
[2025-02-07] MEDS: ACETAMINOPHEN 500 MG TABLET (FP) PO ONE (11:15)
[2025-02-07 11:43] VITALS: TEMP 98
[2025-02-07 11:47] VITALS: BP 128/86; PULSE 66
== END 2025-02-07 11:20 | disposition home or self-care (01) ==
LOC: JASU-SURG 06:10
PROVIDERS: ATTEND Surgery
PROC: 0JH60XZ Insertion of Tunneled Vascular Access Device into Chest Subcutaneous Tissue and Fascia, Open Approach (ICD-10-PCS; principal; 2025-02-07 08:00)
DX: C18.9 Malignant neoplasm of colon, unspecified (principal)
CPT/HCPCS: 36561; C1751; 71045-TC-FY; 76000-TC-FY; 94760; C1788; J1644